=== PATIENT | female | born 2005 | race Caucasian/White ===

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

== ENCOUNTER 2024-08-31 07:15 | Emergency (ER) | payer OTHER, BC ==
[~2024-08-31] VITALS: Ht 170.2 cm; Wt 55.8 kg
[2024-08-31] MEDS ORDERED: OxyCODONE 7.5 mg/Acetam 325 mg TABLET PO ONE (09:40)
[2024-08-31] MEDS ORDERED: Amoxicillin/Clavulanate K 875 MG Tab PO ONE (12:05)
[2024-08-31] MEDS ORDERED: IBUP600 PO (12:21)
[2024-08-31] MEDS ORDERED: ACET500 PO (12:21)
[2024-08-31] MEDS ORDERED: AMOCLA875 PO (12:21)
[2024-08-31 12:29] VITALS: BP 126/84
== END 2024-08-31 12:40 | disposition home or self-care (01) ==
LOC: ER 07:15
DX: S66.123A Laceration of flexor muscle, fascia and tendon of left middle finger at wrist and hand level, initial encounter (principal); S61.212A Laceration without foreign body of right middle finger without damage to nail, initial encounter; W27.8XXA Contact with other nonpowered hand tool, initial encounter
CPT/HCPCS: 12002; 99283-25; A9270

== ENCOUNTER 2025-08-30 09:06 | Emergency (ER) | payer BC, OTHER ==
[~2025-08-30] VITALS: Ht 170.2 cm; Wt 59.0 kg
[~2025-08-30 09:06] MED LIST changes: +ACET500 PO; +AMOCLA875 PO; +IBUP600 PO
[2025-08-30] MEDS ORDERED: Ondansetron HCl 2 MG / ML 2ML Vial IV ONE (10:15)
[2025-08-30] MEDS ORDERED: Ketorolac Tromethamine 30mg Vial IM ONE (10:15)
[2025-08-30] MEDS ORDERED: NS 1,000 ML IV SCH (10:15)
[2025-08-30 11:01] LABS: BASOPHILS ABSOLUTE AUTO 0.05 K/mm3 (0.00-0.23); BASOPHILS PERCENT AUTO 0 % (0-2); EOSINOPHILS ABSOLUTE AUTO 0.04 K/mm3 (0.00-0.68); EOSINOPHILS PERCENT AUTO 0 % (0-6); Hematocrit 32.4 % (33.0-51.0); Hemoglobin 9.7 g/dL (11.5-16.0); IMMATURE GRAN ABSOLUTE AUTO 0.03 K/mm3 (0.00-0.10); IMMATURE GRAN PERCENT AUTO 0 % (0-1); LYMPHOCYTES ABSOLUTE AUTO 1.12 K/mm3 (0.84-5.20); LYMPHOCYTES PERCENT AUTO 9 % (21-46); MONOCYTES ABSOLUTE AUTO 1.29 K/mm3 (0.16-1.47); MONOCYTES PERCENT AUTO 11 % (4-13); Mean Corpuscular HGB Conc 29.9 g/dL (31.5-36.5); Mean Corpuscular Volume 73 fL (80-100); NEUTROPHILS ABSOLUTE AUTO 9.71 K/mm3 (1.96-9.15); NEUTROPHILS PERCENT AUTO 79 % (41-73); NRBC ABSOLUTE 0.00 K/mm3 (0.00-0.02); NRBC Auto 0.0 /100 WBC (0.0-0.2); Platelet Count 427 K/mm3 (150-400); RDW Coefficient Variation 18.1 % (11.7-14.2); RDW Standard Deviation 47.4 fL (35.1-46.3)
[2025-08-30 11:21] LABS: Alanine Aminotransfer (ALT/SGP 16.0 U/L (12-78); Albumin, Blood 3.8 g/dL (3.4-5.0); Albumin/Globulin Ratio 0.9 (0.8-1.8); Anion Gap 9.0 mmol/L (3-11); Aspartate Aminotrans (AST/SGOT 13.0 U/L (12-37); Bilirubin, Total 0.7 mg/dL (0.1-1.0); Blood Urea Nitrogen 8.0 mg/dL (8-24); CO2, Blood 25.0 mmol/L (21-32); Calcium, Blood 9.2 mg/dL (8.5-10.1); Chloride, Blood 105.0 mmol/L (98-108); Creatinine, Blood 0.55 mg/dL (0.40-1.00); Globulin, Blood 4.1 g/dL (2.2-4.0); Glucose, Blood 91.0 mg/dL (70-99); Potassium, Blood 3.9 mmol/L (3.5-5.5); Sodium, Blood 135.0 mmol/L (136-145); Total Protein, Blood 7.9 g/dL (6.4-8.2)
[2025-08-30] MEDS ORDERED: DiphenhydrAMINE HCl 50 MG/ML 1ML Vial IV ONE (12:00)
[2025-08-30] MEDS ORDERED: Prochlorperazine Edisylate 10 mg Vial IV ONE (12:00)
[2025-08-30 12:09] LABS: Influenza A, PCR NEGATIVE (NEGATIVE); Influenza B, PCR NEGATIVE (NEGATIVE); Resp Syncytial Virus, PCR NEGATIVE (NEGATIVE); SARS-Cov-2 (COVID-19) PCR, MMC NEGATIVE (NEGATIVE)
[2025-08-30] MEDS ORDERED: ONDA4ODT MM (13:18)
[2025-08-30] MEDS ORDERED: Percocet 5-3251 EACH PO (13:18)
[2025-08-30] MEDS ORDERED: PROC5 PO (13:18)
[2025-08-30 13:30] VITALS: BP 111/64
== END 2025-08-30 13:50 | disposition home or self-care (01) ==
LOC: ER 09:06
PROVIDERS: Student in an Organized Health Care Education/Training Program
DX: B34.9 Viral infection, unspecified (principal); D50.9 Iron deficiency anemia, unspecified
CPT/HCPCS: 80053; 85025; 87081; 87430; 87637; 96361; 96374; 96375; 99282-25; J0780; J1200; J1885; J2405; J7030